=== PATIENT | female | born 1980 | race Caucasian/White ===

== ENCOUNTER 2016-03-23 15:05 | Observation (INO) | payer OTHER ==
[~2016-03-23] VITALS: Ht 162.6 cm; Wt 73.9 kg
[2016-03-23 16:19] LABS: HEMOGLOBIN A1C 5.3 % (4.5-6.2)
[2016-03-23 17:09] VITALS: BP 98/58
== END 2016-03-23 16:50 | disposition home or self-care (01) ==
LOC: 4S 15:05
PROVIDERS: ADMIT Obstetrics & Gynecology; ATTEND Obstetrics & Gynecology
DX: O24.419 Gestational diabetes mellitus in pregnancy, unspecified control (principal); Z3A.39 39 weeks gestation of pregnancy
CPT/HCPCS: 36415; 59025; 82947; 83036; G0378

== ENCOUNTER 2016-03-29 09:05 | Inpatient (IN) | payer OTHER ==
[~2016-03-29] VITALS: Ht 154.9 cm; Wt 74.4 kg
[~2016-03-29 09:05] MED LIST: LABETALOL HCL 5 MG/ML 20 ML VIAL IVP ONE; OXYTOCIN 10 UNITS/ML VIAL IM ONE; PHENYLEPHRINE HCL 10 MG/ML VIAL IVP ONE
[2016-03-29] MEDS ORDERED: PREN-134 PO (09:09)
[2016-03-29] MEDS ORDERED: CITRIC ACID/SODIUM CITRATE 30 ML SOLUTION UDCUP PO ONE (09:15)
[2016-03-29] MEDS ORDERED: RINGERS SOLUTION,LACTATED 1,000 ML IV SCH (09:15)
[2016-03-29] MEDS ORDERED: METOCLOPRAMIDE HCL 5 MG/ML 2 ML VIAL IVP ONE (09:15)
[2016-03-29] MEDS ORDERED: RINGERS SOLUTION,LACTATED 1,000 ML IV ONE (09:20)
[2016-03-29 10:43] LABS: BASOPHILS % (AUTO) 0.4 % (0.0-2.0); EOSINOPHILS % (AUTO) 2.9 % (1.0-6.0); HEMATOCRIT 39.1 % (36-46); HEMOGLOBIN 13.3 g/dL (12.0-16.0); LYMPHOCYTES # (AUTO) 1.3 K/uL (1.0-4.8); LYMPHOCYTES % (AUTO) 21.3 % (22.0-44.0); MEAN CORPUSCULAR HEMOGLOBIN 33.1 pg (26.0-34.0); MEAN CORPUSCULAR VOLUME 97 fL (80-100); MONOCYTES # (AUTO) 0.6 K/uL (0.1-1.0); MONOCYTES % (AUTO) 10.2 % (2.0-9.0); NEUTROPHILS # (AUTO) 3.8 K/uL (1.8-7.7); NEUTROPHILS % (AUTO) 65.2 % (40.0-70.0); PLATELET COUNT (AUTO) 172 K/uL (150-450); RED BLOOD CELL COUNT(AUTO) 4.01 MIL/uL (4.00-5.20); RED CELL DISTRIBUTION WIDTH 15.1 % (11.5-14.5); WHITE BLOOD COUNT (AUTO) 5.9 K/uL (4.5-11.0)
[2016-03-29] MEDS ORDERED: PROMETHAZINE HCL 12.5 MG in SODIUM CHLORIDE 0.9% 50 ML IV PRN (12:00)
[2016-03-29] MEDS ORDERED: FentaNYL CITRATE-PF 100 MCG/2 ML VIAL IVP PRN ×4 (12:00)
[2016-03-29] MEDS ORDERED: DiphenhydrAMINE HCL 50 MG/ML VIAL IVP PRN ×2 (12:00)
[2016-03-29] MEDS ORDERED: NALOXONE HCL 0.4 MG/ML VIAL IVP PRN (12:00)
[2016-03-29] MEDS ORDERED: NALBUPHINE HCL 10 MG/ML VIAL IVP PRN ×3 (12:00)
[2016-03-29] MEDS ORDERED: MEPERIDINE-PF 25 MG/ML SYRINGE IVP PRN (12:00)
[2016-03-29] MEDS ORDERED: DEXAMETHASONE SOD PHOS 4 MG/ML VIAL IVP PRN (12:00)
[2016-03-29] MEDS ORDERED: ONDANSETRON HCL 4 MG/2 ML VIAL IVP PRN ×2 (12:00)
[2016-03-29] MEDS ORDERED: MORPHINE SULFATE/PF 0.5 MG/ML 10 ML AMP ONE (12:16)
[2016-03-29] MEDS ORDERED: FentaNYL CITRATE-PF 100 MCG/2 ML VIAL ONE (12:16)
[2016-03-29] MEDS ORDERED: CeFAZolin 2 GM/DEXTROSE 50 ML IV ONE (12:16)
[2016-03-29] MEDS ORDERED: ACETAMINOPHEN/CODEINE 300-30 MG TABLET PO PRN (13:15)
[2016-03-29] MEDS ORDERED: LANOLIN 7 GM OINTMENT TP PRN (13:15)
[2016-03-29] MEDS ORDERED: NALBUPHINE HCL 10 MG/ML VIAL IVP ONE (15:15)
[2016-03-29] MEDS: DEXTROSE 5%-0.45% SODIUM CHL 1,000 ML IV SCH ×2 (18:16→22:10)
[2016-03-29] MEDS ORDERED: OXYGEN THERAPY IH SCH ×2 (20:00)
[2016-03-30] MEDS: DEXTROSE 5%-0.45% SODIUM CHL 1,000 ML IV SCH ×2 (01:38→05:30)
[2016-03-30] MEDS: IBUPROFEN 800 MG TABLET PO SCH ×3 (06:59→18:25)
[2016-03-30] MEDS: MAGNESIUM HYDROXIDE SUSPENSION 30 ML UDCUP PO SCH ×2 (09:19→21:52)
[2016-03-30] MEDS: ACETAMINOPHEN/CODEINE 300-30 MG TABLET PO PRN ×2 (17:27→21:53)
[2016-03-31] MEDS: ACETAMINOPHEN/CODEINE 300-30 MG TABLET PO PRN (04:03)
[2016-03-31] MEDS: IBUPROFEN 800 MG TABLET PO SCH ×5 (04:03→20:55)
[2016-03-31] MEDS: MAGNESIUM HYDROXIDE SUSPENSION 30 ML UDCUP PO SCH ×2 (09:28→20:56)
[2016-04-01] MEDS: IBUPROFEN 800 MG TABLET PO SCH ×2 (02:52→08:51)
[2016-04-01] MEDS: MAGNESIUM HYDROXIDE SUSPENSION 30 ML UDCUP PO SCH (09:00)
[2016-04-01] MEDS ORDERED: ACET1TAB12 PO (09:30)
[2016-04-01] MEDS ORDERED: IBUP-2070 PO (09:33)
[2016-04-01] MEDS ORDERED: DSS100 PO (09:34)
== END 2016-04-01 13:50 | disposition home or self-care (01) | DRG 766 ==
LOC: 4S 09:05 → OBSVTOIN 09:05 → NSY 14:52 → 4S 14:53
PROVIDERS: ADMIT Obstetrics & Gynecology; ATTEND Obstetrics & Gynecology
PROC: 10D00Z1 Extraction of Products of Conception, Low, Open Approach (ICD-10-PCS; principal; 2016-03-29)
DX: O36.63X0 Maternal care for excessive fetal growth, third trimester, not applicable or unspecified (principal); O75.89 Other specified complications of labor and delivery; M54.31 Sciatica, right side; Z37.0 Single live birth; Z3A.40 40 weeks gestation of pregnancy
CPT/HCPCS: 86850; 86900; 86901; 87081; J0690; J1200; J2274; J2300; J2370; J2405; J2590; J2765; J3010; J3490; J7120